=== PATIENT | male | born 1995 | race Hispanic/Latino ===

== ENCOUNTER 2018-05-21 12:40 | Outpatient (CLI) | payer BC ==
[2018-05-21 14:06] LABS: #Basophils 0.1 thou/uL (0.0-0.2); #Lymphocytes 1.1 thou/uL (1.20-3.40); #Monocytes 0.3 thou/uL (0.11-0.59); #Neutrophils 1.6 thou/uL (1.40-6.50); %Basophils 1.6 % (0.0-1.0); %Lymphocytes 36.4 % (28.0-48.0); Hemoglobin 15.9 g/dL (14.0-18.0); Mean Corpuscular HGB CONC 34.2 g/dL (32.0-36.0); Mean Corpuscular Hemoglobin 31.2 pg (25.0-35.0); Mean Corpuscular Volume 91.1 fL (78.0-98.0); Mean Platelet Volume 8.7 fL (7.4-10.4); Platelet Count 151 thou/uL (130-400); RBC Distribution Width 11.8 % (11.5-14.5); Red Blood Cell (RBC) Count 5.11 mill/uL (4.00-5.20); White Blood Cell (WBC) Count 3.1 thou/uL (4.8-10.8)
[2018-05-21 14:29] LABS: Anion Gap 12 mmol/L (10-20); BUN (Urea Nitrogen) 14 mg/dL (8.9-20.6); Calc. Creatinine Clearance 0 mL/min (70-130); Calcium 9.2 mg/dL (7.8-10.44); Carbon Dioxide 27 mmol/L (22-29); Chloride 104 mmol/L (98-107); Estimated GFR-MDRD 90; Glucose 87 mg/dL (70-105); Potassium 4.3 mmol/L (3.5-5.1); Sodium 139 mmol/L (136-145)
== END 2018-05-21 12:41 | disposition home or self-care (01) ==
LOC: LABBT 12:40
PROVIDERS: ATTEND Surgery
DX: Z01.812 Encounter for preprocedural laboratory examination (principal); K42.9 Umbilical hernia without obstruction or gangrene
CPT/HCPCS: 80048; 85025

== ENCOUNTER 2018-05-26 09:28 | Day surgery (SDC) | payer BC ==
[2018-05-21 13:11] VITALS: BMI 22.9
[2018-05-26] MEDS ORDERED: Ondansetron HCl/PF 4 MG/2 ML Vial ONE (09:53)
[2018-05-26] MEDS ORDERED: Dexamethasone 20 MG/5 ML VIAL ONE (09:53)
[2018-05-26] MEDS ORDERED: PROPOFOL 200 MG/20 ML VIAL ONE (09:53)
[2018-05-26] MEDS ORDERED: Lidocaine 1% PF 5 ML VIAL ONE (09:53)
[2018-05-26] MEDS ORDERED: CEFAZOLIN/Water 2 GM/20 ML SYRINGE ONE (10:08)
[2018-05-26] MEDS ORDERED: Bupivacaine/Epinephrine 0.25% 30 ML VIAL ONE (10:17)
[2018-05-26] MEDS ORDERED: Midazolam HCl 2 mg/2 ml Vial ONE (10:44)
[2018-05-26] MEDS ORDERED: Fentanyl 100 MCG/2 ML VIAL ONE (10:44)
[2018-05-26] MEDS ORDERED: Meperidine HCl/PF 25 MG/ML VIAL ONE (12:10)
[2018-05-26] MEDS ORDERED: Non-Formulary Medication 1 EACH PO PRN (12:17)
[2018-05-26] MEDS ORDERED: Promethazine HCl 25 MG/ML VIAL IM/IV PRN (12:17)
[2018-05-26] MEDS ORDERED: Ondansetron HCl/PF 4 MG/2 ML Vial IVP PRN (12:17)
[2018-05-26] MEDS ORDERED: Meperidine HCl/PF 25 MG/ML VIAL IV PRN (12:19)
--- NOTE | 2018-05-26 16:59 | PDOC.OP ---
Operative Note - Operative Note Operative Note: PROCEDURE: Umbilical hernia repair with mesh. DATE OF PROCEDURE: SURGEON: Jono Pal M.D. PREOPERATIVE DIAGNOSES: Umbilical hernia POSTOPERATIVE DIAGNOSIS: Umbilical hernia HISTORY: Patient with symptomatic umbilical hernia for which operative repair with mesh is recommended. PROCEDURE IN DETAIL: After informed consent was obtained and appropriate preoperative antibiotics were administered the patient was taken to the operating room and placed in the supine position. General anesthesia by laryngeal mask airway was administered and the abdomen was prepped and draped in the standard sterile fashion. Local anesthesia was infused the skin and subcutaneous tissue surrounding the umbilicus. A periumbilical incision was made and dissection carried down to the hernia sac which was dissected free of the overlying dermis and the surrounding subcutaneous tissues. The hernia was traced down to the fascia which was cleared circumferentially. The hernia sac was dunked back into the abdominal cavity through the 1.5cm defect and a preperitoneal space created for mesh placement. 4.3 cm Ventralex mesh was placed through the fascial defect and confirmed to be lying flat in the preperitoneal space. The fascial edges were then reapproximated with interrupted and [id number] Ethibond sutures incorporating the central strap into the closure. The sutures were secured and the excess strap trimmed down to the level of the fascia. The subcutaneous tissues were reapproximated with 3-0 Monocryl suture and the skin was closed with 4-0 subcuticular Monocryl suture. Dermabond dressings were placed and once these were dry a cotton ball and Tegaderm dressing was placed. The patient was extubated and taken to the recovery room in good condition. There were no complications. There were no specimens. Estimated blood loss was minimal.
== END 2018-05-26 14:05 | disposition home or self-care (01) ==
LOC: SDC 09:28
PROVIDERS: ATTEND Surgery
PROC: 0WUF0JZ Supplement Abdominal Wall with Synthetic Substitute, Open Approach (ICD-10-PCS; principal; 2018-05-26)
DX: K42.9 Umbilical hernia without obstruction or gangrene (principal)
CPT/HCPCS: 96374; J1100; J2001; J2175; J2250; J2405; J2704; J3010

== ENCOUNTER 2020-06-25 08:56 | Outpatient (CLI) | payer OTHER ==
--- NOTE | 2020-06-25 11:46 | MRI ---
MRI CERVICAL SPINE WITHOUT CONTRAST: Date; 06/25/2020 INDICATION: Neck pain. Radicular pain. FINDINGS: Cervical vertebra maintain normal height and alignment. Disc spaces are preserved and exhibit normal signal. No significant abnormality seen at C2-3 or C3-4. C4-5: There is a small annular tear with tiny protrusion centrally, mildly flattening the anterior t hecal sac. The anterior subarachnoid space is well preserved and there is no central canal or foramin al stenosis. C5-6: A mild broad based disc bulge abuts the thecal sac. Anterior subarachnoid space is generous. T here is no central canal or foraminal stenosis. C7-T1: No significant abnormality. Cervical cord signal is normal. There is no evidence of edema seen within the paraspinous ligaments or musculature. IMPRESSION: 1. Small annular tear with tiny central protrusion at C4-5. 2. Mild diffuse disc bulge at C5-6 as described. POS: AH
== END 2020-06-25 08:57 | disposition home or self-care (01) ==
LOC: SCSMRI 08:56
PROVIDERS: ATTEND Nurse Practitioner Family
DX: M50.121 Cervical disc disorder at C4-C5 level with radiculopathy (principal); M48.8X2 Other specified spondylopathies, cervical region
CPT/HCPCS: 72141

== ENCOUNTER 2020-12-17 07:53 | Outpatient (CLI) | payer OTHER | END 2020-12-17 07:54 | disposition home or self-care (01) | LOC: BICMRI 07:53 | PROVIDERS: ATTEND Nurse Practitioner Family | DX: M54.16 Radiculopathy, lumbar region (principal); M51.37 Other intervertebral disc degeneration, lumbosacral region | CPT/HCPCS: 72148 ==

== ENCOUNTER 2021-04-14 17:36 | Emergency (ER) | payer OTHER | END 2021-04-14 19:34 | disposition home or self-care (01) | LOC: ERS 17:36 | DX: R06.02 Shortness of breath (principal); R05 Cough; Z20.822 Contact with and (suspected) exposure to COVID-19 | CPT/HCPCS: 99283 ==

== ENCOUNTER 2021-04-15 08:12 | Emergency (ER) | payer OTHER ==
[2021-04-15] MEDS ORDERED: Albuterol 200 PUFF (6.7GM INHALER) ONE (09:19)
[2021-04-15] MEDS ORDERED: Acetaminophen 500 MG TAB ONE (09:20)
[2021-04-15] MEDS ORDERED: Ketorolac Tromethamine 30 MG/ML VIAL ONE (09:20)
== END 2021-04-15 10:13 | disposition home or self-care (01) ==
LOC: ERS 08:12
DX: U07.1 COVID-19 (principal); J15.9 Unspecified bacterial pneumonia
CPT/HCPCS: 71045; 93005; 96374; J1885

== ENCOUNTER 2021-08-09 14:20 | Outpatient (CLI) | payer OTHER | END 2021-08-09 14:21 | disposition home or self-care (01) | LOC: BICULT 14:20 | PROVIDERS: ATTEND Surgery | DX: R10.30 Lower abdominal pain, unspecified (principal) | CPT/HCPCS: 76999 ==

== ENCOUNTER 2021-10-28 09:01 | Outpatient (CLI) | payer OTHER | END 2021-10-28 09:02 | disposition home or self-care (01) | LOC: BICRAD 09:01 | PROVIDERS: ATTEND Nurse Practitioner Family | DX: M54.2 Cervicalgia (principal); M54.6 Pain in thoracic spine | CPT/HCPCS: 72050; 72072 ==

== ENCOUNTER 2022-12-30 20:17 | Emergency (ER) | payer OTHER | END 2022-12-30 22:15 | disposition home or self-care (01) | LOC: ERS 20:17 | DX: R07.9 Chest pain, unspecified (principal) | CPT/HCPCS: 36415; 71045; 84484; 93005 ==

== ENCOUNTER 2023-04-08 12:58 | Outpatient (CLI) | payer OTHER | END 2023-04-08 12:59 | disposition home or self-care (01) | LOC: SCSMRI 12:58 | PROVIDERS: ATTEND Nurse Practitioner Family | DX: M50.121 Cervical disc disorder at C4-C5 level with radiculopathy (principal); M50.122 Cervical disc disorder at C5-C6 level with radiculopathy | CPT/HCPCS: 72141 ==

== ENCOUNTER 2023-04-21 13:23 | Outpatient (CLI) | payer OTHER | END 2023-04-21 13:24 | disposition home or self-care (01) | LOC: BICMRI 13:23 | PROVIDERS: ATTEND Specialist | DX: M54.16 Radiculopathy, lumbar region (principal); M51.37 Other intervertebral disc degeneration, lumbosacral region | CPT/HCPCS: 72148 ==

== ENCOUNTER 2023-07-13 11:36 | Emergency (ER) | payer OTHER, BC ==
[2023-07-13] MEDS ORDERED: predniSONE 20 MG TAB ONE (13:45)
== END 2023-07-13 14:07 | disposition home or self-care (01) ==
LOC: ERS 11:36
DX: M54.12 Radiculopathy, cervical region (principal)
CPT/HCPCS: 99283; J7512

== ENCOUNTER 2023-08-07 15:42 | Emergency (ER) | payer OTHER | END 2023-08-07 16:51 | disposition home or self-care (01) | LOC: ERS 15:42 | DX: G62.9 Polyneuropathy, unspecified (principal); M54.2 Cervicalgia | CPT/HCPCS: 99283 ==

== ENCOUNTER 2023-09-27 11:40 | Emergency (ER) | payer BC, OTHER ==
[2023-09-27] MEDS ORDERED: Ketorolac Tromethamine 30 MG (1 mL) VIAL ONE (13:18)
== END 2023-09-27 13:31 | disposition home or self-care (01) ==
LOC: ERS 11:40
DX: R51.9 Headache, unspecified (principal)
CPT/HCPCS: 96372; 99283; J1885

== ENCOUNTER 2024-08-11 11:38 | Outpatient (CLI) | payer OTHER | END 2024-08-11 11:39 | disposition home or self-care (01) | LOC: SCSMRI 11:38 | PROVIDERS: ATTEND Family Medicine | DX: M51.24 Other intervertebral disc displacement, thoracic region (principal); M54.16 Radiculopathy, lumbar region; M47.814 Spondylosis without myelopathy or radiculopathy, thoracic region | CPT/HCPCS: 72146; 72148 ==

== ENCOUNTER 2024-09-26 15:16 | Outpatient (CLI) | payer BC | END 2024-09-26 15:17 | disposition home or self-care (01) | LOC: SCSMRI 15:16 | PROVIDERS: ATTEND Psychiatry & Neurology Neurology | DX: R20.2 Paresthesia of skin (principal) | CPT/HCPCS: 70553; 76376 ==

== ENCOUNTER 2025-05-26 09:02 | Outpatient (CLI) | payer BC ==
[2025-05-26] MEDS ORDERED: Iopamidol 370 76% 100 ML VIAL ONE (11:53)
== END 2025-05-26 09:03 | disposition home or self-care (01) ==
LOC: CT 09:02
PROVIDERS: ATTEND Family Medicine
DX: N28.89 Other specified disorders of kidney and ureter (principal)
CPT/HCPCS: 74170; Q9967